=== PATIENT | female | born 1990 | race Caucasian/White ===

== ENCOUNTER 2023-02-21 10:35 | Emergency (ER) | payer OTHER, SELFPAY ==
--- NOTE | 2023-02-21 10:37 | ED.URI ---
HPI - URI/Sore Throat General Chief Complaint: Upper Respiratory Infection Stated Complaint: sore throat, bodyache Time Seen by Provider: 02/21/23 10:37 Source: patient and RN notes reviewed History of Present Illness HPI Narrative: Patient is a 32-year-old female who presents to urgent care with complaints of sore throat, body aches and chills since Saturday. Patient also reports of a headache. States that she has used Advil and daytime flu. Patient states that she is weaning off breast feeding and thought maybe the symptoms were related. Patient denies any ill exposures are known fever. Denies any nausea or vomiting. No other acute complaints. No acute distress noted. Patient aware of the plan of care. Some parts of this dictation were generated by voice recognition software and may contain typographical and/or grammatical inaccuracies. Related Data Home Medications Medication Instructions Recorded Confirmed No Home Medications 02/21/23 02/21/23 Allergies Allergy/AdvReac Type Severity Reaction Status Date / Time No Known Allergies Allergy Verified 02/21/23 10:44 Review of Systems Review of Systems: CONSTITUTIONAL: Reports of chills EYES: Denies visual changes, redness, or discharge. ENT: Denies rhinorrhea, congestion, otalgia. Reports of sore throat CARDIOVASCULAR: Denies chest pain, palpitations, or edema. RESPIRATORY: Denies cough or dyspnea. GASTROINTESTINAL: Denies abdominal pain, nausea, vomiting, or diarrhea. GENITOURINARY: Denies dysuria or hematuria. SKIN: Denies rash or itching. MUSCULOSKELETAL: Denies back pain, joint pain. Reports body aches NEUROLOGIC: Reports of headache All other systems reviewed are negative, except as documented in HPI. PMFSH Comments At the time of my signature, I reviewed and agree with the nursing past medical, surgical, social, and family history. There is no relevant family history pertinent to the patient complaint. Exam Narrative: GENERAL: This is a well-nourished, well-developed patient, in no apparent distress. HEAD: normocephalic, atraumatic. EYES: PERRL. Sclera clear/white. Vision is grossly intact. EARS: External ears normal, auditory canals clear and without drainage, TMs normal without perforation. Hearing grossly intact. NOSE: External nose normal with no obvious nasal discharge, nares without redness, no rhinorrhea. THROAT: Mucous membranes moist, posterior pharynx clear. Mild erythema to posterior pharynx NECK: Neck supple, non-tender without lymphadenopathy CARDIOVASCULAR: Regular rate and rhythm RESPIRATORY: Clear to auscultation. Breath sounds equal bilaterally. No wheezes, rales, or rhonchi. SKIN: warm, intact with no suspicious lesions or rash, good texture and turgor. NEURO: awake, alert, and oriented to person, place and time. There were no obvious focal neurologic abnormalities. EXTREMITIES: No clubbing, cyanosis, or edema. Course Course Level of Care: Express Care Visit Vital Signs Vital signs: Vital Signs Temperature 98.2 F 02/21/23 10:45 Pulse Rate 88 02/21/23 10:45 Respiratory Rate 20 02/21/23 10:45 Blood Pressure 113/79 02/21/23 10:45 Pulse Oximetry 100 02/21/23 10:45 Temperature 98.2 F 02/21/23 10:45 Pulse Rate 88 02/21/23 10:45 Respiratory Rate 20 02/21/23 10:45 Blood Pressure 113/79 02/21/23 10:45 Pulse Oximetry 100 02/21/23 10:45 Reviewed MDM - URI/Sore Throat MDM Narrative Medical decision making narrative: Reviewed lab results with the patient. She is aware that strep swab was negative. Educated patient on culture we will call within 72 hours if culture is positive antibiotics are necessary. Advised patient to use a daily antihistamine such as Claritin or Zyrtec. Use Tylenol/ibuprofen as needed. Use a humidifier at night. Increase water intake and rest. Follow-up with your PCP within 2-5 days or for worsening symptoms or failure to improve. Differential Diagnosis Differential diagnos
[2023-02-21 10:45] VITALS: BP 113/79; PULSE 88; RESP 20; TEMP 36.8; O2SAT 100
== END 2023-02-21 11:25 | disposition home or self-care (01) ==
PROVIDERS: Emergency Provider Nurse Practitioner Family; PCP Hospitalist
DX: J02.9 Acute pharyngitis, unspecified (principal)
CPT/HCPCS: 87081; 87880; 99213; G0463

== ENCOUNTER 2023-12-07 09:44 | Emergency (ER) | payer OTHER, SELFPAY ==
--- NOTE | 2023-12-07 09:47 | ED.URI ---
HPI - URI/Sore Throat General Chief Complaint: Upper Respiratory Infection Stated Complaint: Cold symptoms;Covid test Time Seen by Provider: 12/07/23 09:57 Source: patient, RN notes reviewed and old records reviewed Mode of arrival: ambulatory Limitations: no limitations History of Present Illness HPI Narrative: 33-year-old female presents to the [facility] with 6 days of cough, body aches, congestion. Patient reports being 9 months due January 05. Patient has not taken anything for her symptoms. Patient states her OB is at [facility] Dr. Arguello. Patient is verbalizing concern over a baby. 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 [facility] Onset (ago): day(s) (6) Able to tolerate fluids by mouth: Yes Treatments prior to arrival: none Related Data Home Medications Medication Instructions Recorded Confirmed No Home Medications 02/21/23 02/21/23 Allergies Allergy/AdvReac Type Severity Reaction Status Date / Time No Known Allergies Allergy Verified 02/21/23 10:44 Review of Systems Review of Systems: All systems reviewed & are unremarkable except as noted in HPI and below Constitutional: Constitutional: Reports no additional constitutional complaints Eyes: Eyes: Reports no additional eye complaints ENT: Reports as per HPI, Reports nasal congestion and Reports nasal discharge Cardiovascular: Cardiovascular: Reports no additional cardiovascular complaints, Denies chest pain and Denies dyspnea Respiratory: Respiratory: Reports as per HPI, Denies chest congestion, Reports cough and Denies dyspnea Gastrointestinal: Gastrointestinal: Reports no additional gastrointestinal complaints, Denies abdominal pain, Denies nausea and Denies vomiting Musculoskeletal: Musculoskeletal: Reports no additional musculoskeletal complaints Integumentary/Breasts: Skin/Breast: Reports system reviewed and no additional complaints, except as docu Neurologic: Reports system reviewed and no additional complaints, except as documented Psychiatric: Psychiatric: Reports no additional psychiatric complaints Allergic/Immunologic: Allergic/Immunologic: Reports no additional allergic/immunologic complaints PMFSH Comments At the time of my signature, I reviewed and agree with the nursing past medical, surgical, social, and family history. There is no relevant family history pertinent to the patient complaint. Exam Const: General: cooperative, healthy appearing, comfortable, no acute distress, well developed, alert and well nourished Nutritional Appearance: well nourished Orientation/consciousness: patient oriented x3 Limitations: no limitations HENMT: Head: normal to inspection Ears: hearing grossly normal bilaterally, external ears normal, TM's normal bilaterally, EAC's normal, mastoids normal, no periauricular adenopathy and periauricular adenopathy Face/Nose/Sinus: Normal external nose present, Normal nares present, Normal nasal mucous membranes and turbinates present, normal facial exam and face symmetric Face and sinus: normal facial exam and face symmetric Mouth: Yes Normal oral and palatal mucosa present, Yes lip normal and Yes moist mucous membranes Throat: posterior oropharynx normal, uvula midline and postnasal drainage Eyes: General: appearance normal, both eyes and all related structures Alignment and Position: alignment normal Periorbital: periorbital findings normal Pupils: Equal, round and reactive pupils present EOM: EOMs intact bilaterally Neck: Neck: normal visual inspection, full ROM, no lymphadenopathy and no meningeal signs Chest: Chest palpation & inspection: normal inspection of the chest Resp: Effort & Inspection: normal respiratory effort and able to speak in complete sentences Auscultation: clear to auscultation bilaterally, no crackles, no rales, no rhonchi and no wheezes Cardio: Rate: regular rate Rhythm: regular rhythm Back/Spine/Pelvis: Cervical Spine: cervical ROM normal Skin: G
[2023-12-07 09:50] VITALS: BP 113/82; PULSE 121; RESP 16; TEMP 36.6; O2SAT 98
[2023-12-07 09:57] VITALS: BP 113/82; PULSE 121; RESP 16; TEMP 36.6; O2SAT 98
== END 2023-12-07 10:25 | disposition home or self-care (01) ==
PROVIDERS: Emergency Provider Nurse Practitioner; PCP Hospitalist
DX: J06.9 Acute upper respiratory infection, unspecified (principal); B34.9 Viral infection, unspecified; Z20.822 Contact with and (suspected) exposure to COVID-19
CPT/HCPCS: 87081; 87426; 87804; 87880; 99213; C9803; G0463

== ENCOUNTER 2023-12-07 11:32 | Outpatient (RCR) | payer OTHER, SELFPAY ==
[2023-12-07] VITALS (9 sets, daily range): BP systolic 103–109; BP diastolic 60–64; PULSE 100–108; O2SAT 96–100
[2023-12-07 13:18] LABS: Influenza A QL RT-PCR Negative (Negative); Influenza B QL RT-PCR Negative (Negative); RSV RNA, RT-PCR Positive (Negative); SARS-CoV-2 RNA PCR Negative (Negative)
== END 2024-03-06 23:59 | disposition home or self-care (01) ==
LOC: ANHOBOP 11:32
PROVIDERS: PCP Hospitalist; Visit Provider Obstetrics & Gynecology
DX: O99.891 Other specified diseases and conditions complicating pregnancy (principal); R05.9 Cough, unspecified; J02.9 Acute pharyngitis, unspecified; R09.81 Nasal congestion; R43.8 Other disturbances of smell and taste; Z3A.35 35 weeks gestation of pregnancy
CPT/HCPCS: 59025; 87637

== ENCOUNTER 2024-03-17 21:56 | Emergency (ER) | payer OTHER, SELFPAY ==
--- NOTE | ~2024-03-17 | CT_ITS ---
EXAMINATION: CT abdomen pelvis w con DATE: 03/17/2024 22:58 INDICATION: Left abdominal pain. TECHNIQUE: Computed tomography (CT) of the abdomen and pelvis was performed with 100 mL Omnipaque 350 intravenous contrast. Automated exposure control and iterative reconstruction technique were employe d. The dose-length product was 266.15 mGy-cm. COMPARISON: None. FINDINGS: The visualized portions of the lung bases demonstrate minimal atelectasis. No pleural effus ion. The heart size is normal. No pericardial effusion. The liver, gallbladder, spleen, pancreas, and adrenal glands are normal. There are cysts in the kidneys measuring up to 6 mm in the right. There i s a delayed left-sided contrast nephrogram. There is mild left hydronephrosis and hydroureter. There is a 4 mm stone in left ureterovesicular junction. There are no dilated loops of bowel. The appendix is normal. There are no pathologically enlarged lymph nodes. There is no free intraperitoneal fluid. There is levoscoliosis of thoracolumbar spine with posterior fixation. IMPRESSION: 1. 4 mm stone at left ureterovesicular junction with mild left hydronephrosis and hydroureter. Reviewed, dictated and finalized at location E. IMPRESSION: 1. 4 mm stone at left ureterovesicular junction with mild left hydronephrosis a nd hydroureter.
--- NOTE | ~2024-03-17 | US_ITS ---
EXAMINATION: US pelvic complete DATE: 03/17/2024 23:14 INDICATION: Right lower quadrant abdominal pain. TECHNIQUE: Multiple transabdominal sonographic images of the pelvis were obtained. COMPARISON: CT abdomen and pelvis 03/17/2024 FINDINGS: The uterus measures 8.2 x 3.5 x 5.9 cm. There is no free fluid in the pelvis. The endometrial complex measures 6 mm in thickness. The right ovary measures 2.6 x 2.5 x 2.0 cm. The left ovary measures 3.3 x 1.5 x 2.3 cm. There is normal vascular flow in the ovaries. IMPRESSION: 1. Normal pelvis. Reviewed, dictated and finalized at location E. IMPRESSION: 1. Normal pelvis.
[2024-03-17 22:00] VITALS: BP 127/81; PULSE 60; RESP 15; TEMP 36.6; O2SAT 100
[2024-03-17 22:15] VITALS: BP 129/89; PULSE 65; RESP 16; O2SAT 100
[2024-03-17 22:23] LABS: Appearance Urine Clear (Clear); Bacteria Urine None Seen /hpf; Bilirubin Urine Negative (Negative); Blood Urine 2+ (Negative); Color Urine Yellow (Yellow); Glucose Urine UA Negative (Negative); Ketones Urine Negative (Negative); Leukocyte Esterase Ur Trace LEU/UL (Negative); Need Manual Microscopic Reviewed; Nitrate Urine Negative (Negative); Non Pathogenic Casts 0-2; Protein Urine Negative (Negative); RBC Urine 0-2 /hpf (0-2); Squamous Epithelial Cell Urine None Seen /hpf (Few); Urobilinogen Urine 0.2 mg/dL (<2.0); WBC Urine 0-5 /hpf (0-3)
[2024-03-17 22:25] LABS: Add Urine Microscopic? YES; Specific Grav Ur 1.003 (1.001-1.035)
--- NOTE | 2024-03-17 22:27 | ED.FEMALEGU ---
HPI - Female Genitourinary General Chief complaint: Urogenital-Female Stated complaint: UTI sx since this morning Time Seen by Provider: 03/17/24 21:58 History of Present Illness HPI Narrative: 33-year-old female presents to emergency department for left lower quadrant abdominal pain and left flank pain that started this morning. Patient states she is concerned she has a urinary tract infection. She reports chronic issues with urinary incontinence and decreased sensation in her genital region after she gave to her child in January 2024. Therefore she cannot identify she is having any dysuria, urinary frequency urgency. Denies hematuria. Does endorse that she had a kidney stone which is 15 years old. She reports nausea but denies emesis, fever, vaginal discharge or concern for STDs. No prior abdominal surgeries. LMP last year prior to her most recent . She is currenlty . Related Data Allergies Allergy/AdvReac Type Severity Reaction Status Date / Time No Known Allergies Allergy Verified 03/17/24 22:10 Review of Systems Review of Systems: CONSTITUTIONAL: Denies fever, chills, or sweats. EYES: Denies visual changes, redness, or discharge. ENT: Denies rhinorrhea, congestion, sore throat, or otalgia. CARDIOVASCULAR: Denies chest pain, palpitations, or edema. RESPIRATORY: Denies cough or dyspnea. GASTROINTESTINAL: See HPI GENITOURINARY: See HPI SKIN: Denies rash or itching. MUSCULOSKELETAL: Denies back pain, joint pain, or myalgia. NEUROLOGIC: Denies headache, numbness, or weakness. PSYCHIATRIC: Denies anxiety or depression. Exam Narrative: GENERAL: Patient appears uncomfortable, writhing in exam bed HEAD: Normocephalic, atraumatic. EYES: PERRLA and EOMI. ENT: Nares clear, no rhinorrhea or epistaxis. Mucous membranes moist. NECK: Supple. CHEST: Clear to auscultation. No respiratory distress. HEART: Regular rate and rhythm. No murmur heard. Normal peripheral pulses. ABDOMEN: Soft, nontender, nondistended, normal active bowel sounds. No rebound, guarding or rigidity. Left-sided CVA tenderness EXTREMITIES: Normal range of motion. No edema. SKIN: Warm, dry, no rash. NEURO: No focal deficits. Alert and oriented x3 Course Vital Signs Vital signs: Vital Signs Temperature 97.9 F 03/17/24 22:00 Pulse Rate 60 03/17/24 22:00 Respiratory Rate 15 03/17/24 22:00 Blood Pressure 127/81 03/17/24 22:00 Pulse Oximetry 100 03/17/24 22:00 Oxygen Delivery Room Air 03/17/24 22:00 Temperature 97.9 F 03/17/24 22:00 Pulse Rate 60 03/17/24 22:45 Respiratory Rate 21 H 03/17/24 22:45 Blood Pressure 125/82 03/17/24 22:45 Pulse Oximetry 99 03/17/24 22:45 Oxygen Delivery Room Air 03/17/24 22:00 MDM - Female Genitourinary MDM Narrative Medical decision making narrative: 33-year-old female presents to the emergency department for left lower quadrant abdominal pain and left flank pain that started this morning. Vital stable. Patient is nontoxic, however does appear uncomfortable. Will obtain labs, CT abdomen pelvis, pelvic ultrasound for further evaluation. Fluids, Zofran and pain control provided. CBC with leukocytosis of 12.3. Chemistries unremarkable. UA with 2+ blood and trace leuk esterase, no evidence of UTI. Lactic acid normal at 0.9 lipase normal at 93. Pelvic ultrasound unremarkable. CT abdomen pelvis reveals a 4 mm stone at the left UVJ with mild left hydronephrosis and hydroureter. Labs and imaging discussed with the patient. She received IV fluids, Zofran and Toradol with improvement. She politely declined narcotic pain medications while in the ED. discussed admission for pain control versus outpatient management, patient would like to be discharged home. She is established with a urologist at about which I encouraged her to follow up with. Will send her home with a urine strainer, ibuprofen and [place] for breakthrough pain. Advised her to pump a
[2024-03-17 22:30] VITALS: BP 110/89; PULSE 64; RESP 17; O2SAT 100
[2024-03-17 22:40] LABS: Basophils Percent Auto 0.3 % (0.2-1.2); Eosinophils Absolute Auto 0.1 K/mm3 (0-0.3); Eosinophils Percent Auto 0.5 % (0-4.4); Hematocrit 42.5 % (37.0-47.0); Hemoglobin 13.8 g/dL (12.0-15.0); Immature Granulocyte Absolute 0.03 K/mm3 (0.00-0.031); Immature Granulocyte Percent A 0.2 % (0-0.5); Mean Corpuscular HGB Conc 32.5 g/dl (32-36); Mean Corpuscular Hemoglobin 26.6 pg (26-34); Mean Platelet Volume 9.7 fl (7.4-10.4); Monocytes Absolute Auto 0.4 K/mm3 (0.1-0.6); Monocytes Percent Auto 3.3 % (2.6-8.5); Neutrophils Absolute Auto 9.1 K/mm3 (1.3-6.7); Neutrophils Percent Auto 73.7 % (45.5-73.1); Platelet Count Result 244 k/mm3 (150-375); Red Blood Count 5.18 M/mm3 (4.2-5.4); Red Cell Distribution Width 14.3 % (11.5-14.5); White Blood Count 12.3 K/mm3 (4.5-10.0)
[2024-03-17] MEDS: SODIUM CHLORIDE 0.9% IV 1,000 ML 999 ML IV CONT (22:40)
[2024-03-17 22:45] VITALS: BP 125/82; PULSE 60; RESP 21; O2SAT 99
--- NOTE | 2024-03-17 22:46 | PC.NURSE ---
patient refused pain and nausea medication. provider aware
[2024-03-17 22:54] LABS: Alanine Aminotransferase 22 U/L (6-35); Albumin Level 4.8 g/dL (3.5-5.1); Alkaline Phosphatase 106 U/L (38-126); Anion Gap 10 mmol/L (4-12); Aspartate Amino Transferase 23 U/L (14-36); Bilirubin,Total 0.5 mg/dL (0.2-1.3); Blood Urea Nitrogen 20 mg/dL (7-17); Calcium 10.8 mg/dL (8.4-10.2); Carbon Dioxide 27 mmol/L (22-30); Chloride 104 mmol/L (98-107); Estimated CRCL calculation 71 ml/min; Estimated Glomerular Filt Rate > 60; Glucose 111 mg/dL (65-110); Lipase 93 U/L (23-300); Potassium 4.1 mmol/L (3.4-5.0); Sodium 141 mmol/L (137-145)
[2024-03-17 22:55] LABS: Lactic Acid Reflex 0.9 mmol/L (0.7-2.0)
[2024-03-17] MEDS: KETOROLAC 15 MG/ML VIAL (*BKC) IV PUSH (23:22)
[2024-03-17 23:30] LABS: Estimated CRCL calculation 63 ml/min; Estimated Glomerular Filt Rate > 60
== END 2024-03-18 | disposition home or self-care (01) ==
PROVIDERS: Emergency Provider Physician Assistant; PCP Hospitalist
DX: N20.1 Calculus of ureter (principal)
CPT/HCPCS: 36415; 74177; 76856; 80053; 81001; 81025; 83605; 83690; 85025; 96361; 96374; 99284; J1885; J7030; Q9967